=== PATIENT | female | born 1990 | race Caucasian/White ===

== ENCOUNTER 2016-05-21 20:21 | Emergency (ER) | payer OTHER ==
[~2016-05-21] VITALS: Ht 172.7 cm; Wt 86.2 kg
[~2016-05-21 20:21] MED LIST: Motrin PO; NOHOMEMEDS; PENICILLIN V P500 MG PO
[2016-05-21 20:59] LABS: HEMATOCRIT 34.8 % (36.0-46.0); MCH 30.3 PG (29.0-34.0); MCHC 35.1 G/DL (30.0-36.0); MCV 86.4 FL (83-99); MEAN PLAT.VOLUME 10.6 uM^3 (9.5-12.4); PLATELET COUNT 201 K/uL (156-360); RBC DIS.WIDTH-CV 12.9 % (11.8-14.6); RBC DIS.WIDTH-SD 40.2 % (39-53); RED BLOOD COUNT 4.03 M/uL (3.80-5.20); WHITE BLOOD COUNT 8.8 K/uL (4.1-10.2)
[2016-05-21 21:09] LABS: CHLORIDE 103 mEq/L (99-109); POTASSIUM 3.6 mEq/L (3.7-5.4); SODIUM 136 mEq/L (136-147)
[2016-05-21 21:11] LABS: GLUCOSE 128 mg/dL (70-99)
[2016-05-21 21:13] LABS: ANION GAP 9 MEQ/L (2-14); TOTAL BILIRUBIN 0.6 mg/dL (0.0-1.0)
[2016-05-21 21:15] LABS: ALKALINE PHOSPHATASE 52 IU/L (3-129); GFR ESTIMATE (CALCULATED) > 59 mL/min/
[2016-05-21 21:16] LABS: UREA NITROGEN (BUN) 10 mg/dL (9-23)
[2016-05-21 21:18] LABS: LIPASE 9 U/L (1.0-51.0)
[2016-05-21 21:19] LABS: ADD MIUA? YES; BILIRUBIN SMALL; BLOOD NEGATIVE; COLOR DK YELLOW ((YELLOW)); GLUCOSE (STRIP) NEGATIVE; KETONES 40; LEUKOCYTES TRACE; NITRITE NEGATIVE; PH, URINE 6.5 (5-8); PROTEIN (STRIP) 30; SPECIFIC GRAVITY 1.036 (1.000-1.030)
[2016-05-21] MEDS ORDERED: SUBOXONE 8 MG-1 EAC2 SL (21:20)
[2016-05-21 21:46] LABS: QUANTITATIVE HCG 133804.5 MIU/ML
[2016-05-21 22:04] LABS: BACTERIA RARE; CASTS NONE SEEN /LPF; CRYSTALS NONE SEEN; EPITHELIAL CELLS 4+; MUCUS 4+; RED BLOOD CELLS 0-5 /HPF (0-5); UCUL ADDED? NO; WHITE BLOOD CELLS 0-5 /HPF (0-5)
[2016-05-21] MEDS ORDERED: ZOFRAN4 MG PO (23:21)
[2016-05-21 23:33] VITALS: BP 101/49
== END 2016-05-21 23:35 | disposition home or self-care (01) ==
LOC: EME 20:21
DX: O26.891 Other specified pregnancy related conditions, first trimester (principal); R10.9 Unspecified abdominal pain; O21.9 Vomiting of pregnancy, unspecified; Z3A.01 Less than 8 weeks gestation of pregnancy; O99.331 Smoking (tobacco) complicating pregnancy, first trimester; F17.200 Nicotine dependence, unspecified, uncomplicated; Z87.442 Personal history of urinary calculi
CPT/HCPCS: 76770; 76801; 80053; 81003; 83690; 84702; 85027; 93005; 99281; 99284; J2405; J7030